=== PATIENT | male | born 1965 | race Caucasian/White ===

== ENCOUNTER → 2017-11-26 | Day surgery (SDC) | payer OTHER ==
[~2017-11-26] VITALS: Ht 188 cm; Wt 123.8 kg
[~2017-11-26] MED LIST: ASPIRIN EC81 M1 PO; ATORVASTATIN CA80 M1 PO; GLUCOPHAGE1000 M1 PO; JANUVIA100 M1 PO; LISINOPRIL-HCT1 EACH PO; VENLAFAXINE HC150 MG PO
[2017-11-26 09:17] LABS: ABSOLUTE BASOPHIL COUNT 0.1 /CUMM (0.0-0.2); ABSOLUTE EOSINOPHIL COUNT 0.2 /CUMM (0.0-0.7); ABSOLUTE GRANULOCYTE CT 4.5 /CUMM (1.4-6.5); ABSOLUTE LYMPH COUNT 1.6 /CUMM (1.2-3.4); ABSOLUTE MONOCYTE COUNT 0.5 /CUMM (0.10-0.60); BASOPHIL % 0.8 % (0.0-2.0); EOSINOPHIL % 2.4 % (0-5); GRANULOCYTE % 65.4 % (42.2-75.2); HEMATOCRIT 42.4 % (42-52); MEAN CORPUSCULAR HGB 29.8 PG (27.0-31.0); MEAN CORPUSCULAR VOLUME 85.3 FL (80.0-94.0); MEAN PLATELET VOLUME 8.7 FL (7.4-10.4); PLATELET COUNT 212 /CUMM (130-400); RBC DISTRIBUTION WIDTH 13.1 % (11.5-14.5); RED BLOOD CELL CT 4.97 /CUMM (4.70-6.10); WHITE BLOOD CELL COUNT 6.9 /CUMM (4.8-10.8)
--- NOTE | 2017-11-26 12:44 | Operative Report ---
Operative/Inv Procedure Report Surgery Date: 11/26/17 Name of Procedure: Transanal excision of rectal polyp Pre-Operative Diagnosis: Rectal polyp Post-Operative Diagnosis: Rectal polyp Estimated Blood Loss: less than 50ml Surgeon/[employer] Consultant: iWllian Ruiz Jr., DO Anesthesia: laryngeal mask airway, block Drains: none Specimens: Rectal polyp Complications: None Condition: Good Operative Indication: This is a 52-year-old male long-time patient of mine. He is status post a robotic low anterior resection for a lymph node negative rectal cancer. During a recent surveillance colonoscopy was noted to have a polyp in the very low rectum. The polyp was adjacent to the hemorrhoid cushion and therefore not removed at the time of the colonoscopy. He presents today for removal of this polyp Operative/Procedure Note Note: On the morning before the operation the patient did a enema prep at home. He presented to [facility] where he was taken into the operating room placed in supine position. No induction of general anesthesia placement of laryngeal mask airway was converted to lithotomy position in [facility]. The perineum was prepped and draped in usual fashion and then an anal block was performed using 0.5% Marcaine with epinephrine. A total of 30 mL was injected. Next I gently dilated the anal canal and a [employer] operating proctoscope was placed in the anal canal. A small amount of residual enema and stool was present and this was irrigated away. The polyp was present in the anterior midline just above the dentate line sitting right on the hemorrhoid cushion. The polyp was pedunculated with The polyp was grasped with forceps and then amputated at its base with electrocautery. There was us initially a small amount of bleeding at the polypectomy site and this was initially dressed with electrocautery which made the bleeding worse. I had vigorous bleeding for a few minutes which I oversewed with 2-0 Vicryl suture. And partly controlled with electrocautery and Monsel solution. Once the bleeding was completely controlled procedure was concluded. Bacitracin ointment and a bulky dressing were placed over the anus. The patient was converted back to supine position X been operating room taken recovery area in good condition. At the end of this operational needle sponges and attachments were accounted for Findings: Polypoid lesion anterior midline low rectum-removed Discharge Disposition: PACU
== END ==
LOC: STS 01:03
PROVIDERS: Colon & Rectal Surgery
DX: K62.1 Rectal polyp (principal); Z85.048 Personal history of other malignant neoplasm of rectum, rectosigmoid junction, and anus; Z87.891 Personal history of nicotine dependence; I10 Essential (primary) hypertension; E11.9 Type 2 diabetes mellitus without complications; Z79.84 Long term (current) use of oral hypoglycemic drugs
CPT/HCPCS: 36415; 88305; 93005; 93010; J0131; J1815; J2250; J3490